=== PATIENT | male | born 1985 | race Two or more races ===

== ENCOUNTER 2023-12-27 09:38 | Emergency (ER) | payer OTHER ==
[~2023-12-27] VITALS: Ht 172.7 cm; Wt 78.5 kg
[2023-12-27] MEDS ORDERED: METHYLPREDNISOLONE SOD SUCC 125 MG VIAL IV STA (10:06)
[2023-12-27] MEDS ORDERED: GUAIFENESIN 200 MG/10 ML BLIST.PACK PO STA (10:06)
[2023-12-27] MEDS ORDERED: CEFTRIAXONE SODIUM 1,000 MG VIAL IM STA (10:07)
[2023-12-27] MEDS ORDERED: LEVALBUTEROL HCL 1.25 MG/3 ML SOLUTION IH SCH (10:15)
== END 2023-12-27 11:14 | disposition home or self-care (01) ==
LOC: ER 09:39
DX: J45.909 Unspecified asthma, uncomplicated (principal)